=== PATIENT | female | born 1985 | race Hispanic/Latino ===

== ENCOUNTER 2018-10-19 09:52 | Inpatient (IN) | payer BC ==
[2018-10-19 10:07] VITALS: BMI 18.3
[2018-10-19] MEDS ORDERED: Sodium Chloride 0.9% 1,000 ML IV STA ×3 (10:08→11:59)
[2018-10-19 10:21] LABS: BASO # 0.1 K/uL (0.0-0.2); BASO % 0.5 % (0.0-2.0); HEMOGLOBIN 10.5 g/dL (12.0-16.0); LYMPH # 0.7 K/uL (1.0-4.3); LYMPH % 5.7 % (20.0-40.0); MEAN CELL VOLUME 90.7 fl (81.0-99.0); MEAN CORPUSCULAR HEMOGLOBIN 30.1 pg (27.0-31.0); MEAN CORPUSCULAR HGB CONC 33.2 g/dL (33.0-37.0); MEAN PLATELET VOLUME 7.4 fl (7.2-11.7); MONO # 0.4 K/uL (0.0-0.8); MONO % 3.4 % (0.0-10.0); NEUT % 90.4 % (50.0-75.0); NRBC % 0.1 % (0.0-0.0); PLATELET COUNT 301 K/uL (130-400); WHITE BLOOD COUNT 12.2 K/uL (4.8-10.8)
[2018-10-19 10:24] LABS: INR 1.1; PROTHROMBIN TIME 12.9 Seconds (9.8-13.1)
[2018-10-19 10:27] LABS: PARTIAL THROMBOPLASTIN TIME 26.5 Seconds (25.6-37.1)
[2018-10-19 10:30] LABS: ALB/GLOB RATIO 1.2 (1.0-2.1); ALBUMIN 3.9 g/dL (3.5-5.0); ALT/SGPT 23 U/L (9-52); AST/SGOT 20 U/L (14-36); BLOOD UREA NITROGEN 14 mg/dl (7-17); CALCIUM 9.2 mg/dL (8.4-10.2); GFR NON-AFRICAN AMERICAN > 60
--- NOTE | 2018-10-19 11:00 | ED PDOC ---
HPI: Abdomen Time Seen by Provider: 10/19/18 09:58 Chief Complaint (Nursing): Abdominal Pain Chief Complaint (Provider): Abdominal Pain History Per: Patient, Family () History/Exam Limitations: no limitations Onset/Duration Of Symptoms: Hrs Outside of [place] travel?: No Current Symptoms Are (Timing): Still Present Context: Other (Ectopic ) Severity: Severe Location Of Pain/Discomfort: RLQ, LLQ Associated Symptoms: denies: Nausea, Vomiting, Chest Pain Additional Complaint(s): 32 y/o female with no significant PMHx presents to the ED for evaluation of severe lower abdominal pain, onset last night. As per patient, she had an ecto pic on 09/30 and was given methotrexate. Patient reports of going to her [facility] [facility] for a follow up appointment on 10/07 and was found to have lower HCG levels. Patient states heavy vaginal bleeding began yesterday. Patient additionally states abdominal pain is associated with bloating and dizziness that worsens with sitting up. Otherwise, patient denies nausea, vomiting, chest pain, shortness of breath, vaginal bleeding today and complications. As per , patient has also been exposed to recent sick contacts who were diagnosed with strep throat. Patient reports of having a sore throat and congestion yesterday. Patient additionally denies cough. [employer]: Mason Hawk Past Medical History Reviewed: Historical Data, Nursing Documentation, Vital Signs Vital Signs: Last Vital Signs Temp 98 F 10/19/18 10:06 Pulse 95 H 10/19/18 10:28 Resp 19 10/19/18 10:28 BP 99/52 L 10/19/18 10:28 Pulse Ox 100 10/19/18 10:28 - Medical History PMH: No Chronic Diseases - Surgical History Surgical History: No Surg Hx - Family History Family History: States: Unknown Family Hx - Immunization History Hx Tetanus Toxoid Vaccination: No Hx Influenza Vaccination: No Hx Pneumococcal Vaccination: No - Home Medications Home Medications: Ambulatory Orders Medication Instructions Recorded RX: Ibuprofen [Motrin Tab] 600 mg PO Q6 PRN 5 Days #20 tab 10/21/18 RX: oxyCODONE/Acetaminophen 1 tab PO Q4 PRN 1 Days #15 tab 10/21/18 [Percocet 5/325 mg Tab] - Allergies Allergies/Adverse Reactions: Allergies Allergy/AdvReac Type Severity Reaction Status Date / Time Penicillins Allergy Mild RASH Verified 10/19/18 11:50 Review of Systems ROS Statement: Except As Marked, All Systems Reviewed And Found Negative ENT: Positive for: Nose Congestion, Throat Pain Cardiovascular: Negative for: Chest Pain Respiratory: Negative for: Cough, Shortness of Breath Gastrointestinal: Positive for: Abdominal Pain. Negative for: Nausea, Vomiting Genitourinary Female: Positive for: Vaginal Bleeding (LAST NIGHT) Neurological: Positive for: Dizziness (worsens with sitting up) Physical Exam - Reviewed Nursing Documentation Reviewed: Yes Vital Signs Reviewed: Yes - Physical Exam Appears: Positive for: Uncomfortable Head Exam: Positive for: ATRAUMATIC, NORMOCEPHALIC Skin: Positive for: Warm, Dry, Pallor Eye Exam: Positive for: Normal appearance Neck: Positive for: Normal, Painless ROM Cardiovascular/Chest: Positive for: Regular Rate, Rhythm. Negative for: Murmur Respiratory: Positive for: Normal Breath Sounds. Negative for: Respiratory Distress Gastrointestinal/Abdominal: Positive for: Tenderness (tenderness across the lower pelvis), Guarding (mild) Extremity: Positive for: Normal ROM. Negative for: Deformity Neurologic/Psych: Positive for: Alert, Oriented (x3). Negative for: Motor/Sensory Deficits - Laboratory Results Result Diagrams: 10/21/18 05:40 10/20/18 05:30 Interpretation Of Abn Labs: 12.2 wbc, 685.6 bhcg - ECG O2 Sat by Pulse Oximetry: 100 (RA) Pulse Ox Interpretation: Normal - Critical Care Total Time (In Min): 120 Documented Critical Care: Time excludes all time spent performint seperately billable procedures Medical Decision Making Medical Decision Making: Time: 1007 Plan: -- ABO/RH Type -- Type and Screen -- Beta-HCG, Quantitative -- CMP -- CBC with Differentials -- PTT -- Prothrombin Time -- Sodium Chloride IV 2000 mls/hr -- Sodium Chloride IV 1000 mls/hr -- Influenza A B -- Rapid Strep Group A Antigen -- OB Transvaginal US Scribe Attestation: Documented by Stan Bravo, acting as a scribe for Robert Bellamy MD. Provider Scribe Attestation: All medical record entries made by the Scribe were at my direction and personally dictated by me. I have reviewed the chart and agree that the record accurately reflects my personal performance of the history, physical exam, medical decision making, and the department course for this patient. I have also personally directed, reviewed, and agree with the discharge instructions and disposition. 1015: Spoke with Dr. Wilde who is covering Dr. Mcdonald. 1127: Stable. AAOx3. Spoke with Dr. Yi. Will see pt. in the ER. 2mg morphine given for pain control. 1140: Dr. Yi at bedside and will take pt. to the OR. 1154: Stable. BP maintained after fluid bolus. Crossmatch ordered. Will hold off on transfusion at this time at hg 10.[address] Rodriguez made aware pt. to come to ICU after surgery. Time: 1425 US RESULTS FINDINGS: The uterus measures 7.4 x 3.4 x 3.3 centimeters. The endometrium measures 3 millimeters. The right ovary measures 2.7 x 2.8 x 1.6 centimeters. The endometrium is 3 millimeters. Left are measures 3.3 x 3.9 centimeters with a 2 centimeter cyst. There is paraovarian cystic lesion how with peripheral enhancement and internal cysts pole suggested with crown-rump length measuring 1.4 cm corresponding to 7 weeks 5 days gestational age. IMPRESSION: Left ectopic measuring roughly 7 weeks and 5 days. No free fluid the pelvis. Disposition - Clinical Impression Clinical Impression: Ruptured ectopic - Patient ED Disposition Is Patient to be Admitted: Yes Counseled Patient/Family Regarding: Studies Performed, Diagnosis - Disposition Disposition Time: 11:00 Condition: CRITICAL - Pt Status Changed To: Hospital Disposition Of: Inpatient - Admit Certification Admit to Inpatient:: After my assessment, the patient will require hospitalization for at least two midnights. This is because of the severity of symptoms shown, intensity of services needed, and/or the medical risk in this patient being treated as an outpatient. - POA Present On Arrival: None
[2018-10-19] MEDS ORDERED: Sodium Chloride 0.9% 500 ML IV STA (11:27)
[2018-10-19 11:49] LABS: LYMPHOCYTE 5 % (20-50); MONOCYTE 4 % (0-10); NEUTROPHIL 91 % (42-75); PLATELET ESTIMATE NORMAL (NORMAL); TOTAL CELLS COUNTED 100
[2018-10-19 11:50] LABS: ANISOCYTOSIS SLIGHT; HYPOCHROMIC SLIGHT; LARGE PLATELETS PRESENT; OVALOCYTES SLIGHT
[2018-10-19] MEDS ORDERED: Gentamicin 80 mg/2mL Inj. ONE (11:52)
[2018-10-19] MEDS ORDERED: Etomidate 20 mg/10ml Inj IV ONE (12:01)
[2018-10-19] MEDS ORDERED: Succinylcholine 200 mg/10 ml Inj IV ONE (12:02)
[2018-10-19] MEDS ORDERED: Phenylephrine 10 mg/ml Inj ONE (12:05)
[2018-10-19] MEDS ORDERED: Rocuronium 10 mg/ml (5 ml) ONE (12:27)
[2018-10-19] MEDS ORDERED: Sodium Chloride 0.9% 1,000 ML IV ONE (12:40)
[2018-10-19] MEDS ORDERED: Lactated Ringer's 1,000 ML IV ONE (12:40)
[2018-10-19] MEDS ORDERED: Midazolam 2 MG/2 ML VIAL ONE (12:41)
[2018-10-19] MEDS ORDERED: Absorbable Gelatin Sponge Size 12-7 ONE (13:30)
[2018-10-19] MEDS ORDERED: Neostigmine 1:1000 (1 mg/ml) Inj ONE (13:31)
[2018-10-19] MEDS ORDERED: HYDROmorphone 0.5 mg/0.5 ml ISec IVP PRN (14:23)
--- NOTE | 2018-10-19 14:35 | CP.PCM.HP ---
History of Present Illness - History of Present Illness History of Present Illness: 32 YO f with no PMH presented to ER due to pelvic pain, radiate to shoulder, that started at night. Pt state she had an ectopic on 09/30 and treated with Methotrexate. Pt was seen by her OBGYN on 10/07 and her B-HCG were trending down. Since then patient had no symptoms. But last night she start having this severe pelvic pain 8 out of 10, radiate to shoulder, worsen by sitting, with heavy vaginal bleeding. She also was feeling dizzy and with Nausea. PT denies any other symptoms Allergy: Penicillin PMH: none PSH: none OBGYN: Ectopic pregnany PFH None Social: no smoke, drug but does drink alcohol occasionally ROS all negative except what mentioned In ED Pt was hypotensive and with tachycardia, patient seemed very uncomfortable and pale CBC H/H 10.5/31.5 CMP B-HCG 685 ( Pt state it was in thousand last time checked) ABO/RH Type Type and Screen Pt received Sodium Chloride IV 2000 mls/hr Sodium Chloride IV 1000 mls/hr Influenza A B Rapid Strep Group A Antigen EKG NSR No st/t changes OB Transvaginal US Postive for blood in abdomen ( prelim reading) PT was admitted under OBGYN for Emergent C-Sec for ectopic . Present on Admission - Present on Admission Any Indicators Present on Admission: No Review of Systems - Review of Systems All systems: reviewed and no additional remarkable complaints except Past Patient History - Past Medical History & Family History Past Medical History?: No - Past Social History Smoking Status: Never Smoked - CARDIAC Hx Cardiac Disorders: No - PULMONARY Hx Respiratory Disorders: No - PSYCHIATRIC Hx Emotional Abuse: No Hx Physical Abuse: No Hx Substance Use: No - SURGICAL HISTORY Other/Comment: ectopic - ANESTHESIA Hx Anesthesia: Yes Hx Anesthesia Reactions: No Hx Malignant Hyperthermia: No Meds Allergies/Adverse Reactions: Allergies Allergy/AdvReac Type Severity Reaction Status Date / Time Penicillins Allergy Mild RASH Verified 10/19/18 11:50 Physical Exam - Constitutional Appears: In Acute Distress - Head Exam Head Exam: ATRAUMATIC, NORMAL INSPECTION, NORMOCEPHALIC - Eye Exam Eye Exam: EOMI, Normal appearance, PERRL Pupil Exam: NORMAL ACCOMODATION, PERRL - ENT Exam ENT Exam: Mucous Membranes Moist, Normal Exam - Neck Exam Neck exam: Negative for: Tenderness - Respiratory Exam Respiratory Exam: Clear to Auscultation Bilateral, NORMAL BREATHING PATTERN - Cardiovascular Exam Cardiovascular Exam: REGULAR RHYTHM, +S1, +S2 - GI/Abdominal Exam GI & Abdominal Exam: Tenderness. absent: Distended - Extremities Exam Extremities exam: Positive for: normal inspection - Neurological Exam Neurological exam: Alert, Oriented x3 - Psychiatric Exam Psychiatric exam: Normal Affect, Normal Mood - Skin Skin Exam: Dry, Pallor Results - Vital Signs Recent Vital Signs: Last Vital Signs Temp 98 F 10/19/18 12:53 Pulse 80 10/19/18 12:53 Resp 20 10/19/18 12:53 BP 102/56 L 10/19/18 12:53 Pulse Ox 98 10/19/18 12:53 - Labs Result Diagrams: 10/19/18 10:10 10/19/18 10:10 Labs: Laboratory Results - last 24 hr 10/19/18 10/19/18 10/19/18 10:10 10:10 10:10 WBC 12.2 H RBC 3.50 L Hgb 10.5 L Hct 31.7 L MCV 90.7 MCH 30.1 MCHC 33.2 RDW 13.0 Plt Count 301 MPV 7.4 Neut % (Auto) 90.4 H Lymph % (Auto) 5.7 L Real % (Auto) 3.4 Eos % (Auto) 0.0 Baso % (Auto) 0.5 Neut # (Auto) 11.0 H Lymph # (Auto) 0.7 L Real # (Auto) 0.4 Eos # (Auto) 0.0 Baso # (Auto) 0.1 Neutrophils % (Manual) 91 H Lymphocytes % (Manual) 5 L Monocytes % (Manual) 4 Platelet Estimate Normal Large Platelets Present Hypochromasia (manual) Slight Anisocytosis (manual) Slight Macrocytosis (manual) Slight Ovalocytes Slight PT INR APTT Sodium 139 Potassium 4.3 Chloride 104 Carbon Dioxide 22 Anion Gap 17 BUN 14 Creatinine 0.7 Est GFR ( Amer) > 60 Est GFR (Non-Af Amer) > 60 Random Glucose 180 H Calcium 9.2 Total Bilirubin 0.1 L AST 20 ALT 23 Alkaline Phosphatase 46 Total Protein 7.1 Albumin 3.9 Globulin 3.2 Albumin/Globulin Ratio 1.2 Beta HCG, Quant 685.68 Grp A Beta Strep Ag Blood Type A POSITIVE Blood Type Confirm Antibody Screen Negative Crossmatch See Detail BBK History Checked No verified bt 10/19/18 10/19/18 10/19/18 10:10 10:40 12:11 WBC RBC Hgb Hct MCV MCH MCHC RDW Plt Count MPV Neut % (Auto) Lymph % (Auto) Real % (Auto) Eos % (Auto) Baso % (Auto) Neut # (Auto) Lymph # (Auto) Real # (Auto) Eos # (Auto) Baso # (Auto) Neutrophils % (Manual) Lymphocytes % (Manual) Monocytes % (Manual) Platelet Estimate Large Platelets Hypochromasia (manual) Anisocytosis (manual) Macrocytosis (manual) Ovalocytes PT 12.9 INR 1.1 APTT 26.5 Sodium Potassium Chloride Carbon Dioxide Anion Gap BUN Creatinine Est GFR ( Amer) Est GFR (Non-Af Amer) Random Glucose Calcium Total Bilirubin AST ALT Alkaline Phosphatase Total Protein Albumin Globulin Albumin/Globulin Ratio Beta HCG, Quant Grp A Beta Strep Ag Negative Blood Type Blood Type Confirm A POSITIVE Antibody Screen Crossmatch BBK History Checked Assessment & Plan - Assessment and Plan (Free Text) Assessment: 32 YO f with no PMH presented to ER due to pelvic pain, radiate to shoulder, that started last night.S/P Methotrexate Tx for ectopic . Admitted to OBGYN for emergent C-Sec. Plan Start Clindamycin 900mg for preob Start Gentamicin 80mg for preob IV fluid To regulate blood pressure 2 Unit blood ordered, But not given Pt will be sent to OR Patient will be sent to ICU for monitoring after surgery F/U CBC at 17:00 10/19/18 F/U US official reading Monitor Vitals
--- NOTE | 2018-10-19 14:50 | US ---
Date of service: 10/19/2018 PROCEDURE: HISTORY: preg and pain; known ectopic COMPARISON: TECHNIQUE: FINDINGS: The uterus measures 7.4 x 3.4 x 3.3 centimeters. The endometrium measures 3 millimeters. The right ovary measures 2.7 x 2.8 x 1.6 centimeters. The endometrium is 3 millimeters. Left are measures 3.3 x 3.9 centimeters with a 2 centimeter cyst. There is paraovarian cystic lesion how with peripheral enhancement and internal cysts pole suggested with crown-rump length measuring 1.4 cm corresponding to 7 weeks 5 days gestational age. IMPRESSION: Left ectopic measuring roughly 7 weeks and 5 days. No free fluid the pelvis.
[2018-10-19] MEDS ORDERED: Sodium Chloride 0.9% 1,000 ML IV SCH (15:30)
--- NOTE | 2018-10-19 15:37 | CP.PCM.CON ---
History of Present Illness - History of Present Illness History of Present Illness: 32 years old female with no significant past medical history s/p surgery for ectopic , patient awake, alert, no fever, no vomiting, no distress, events reviewed Review of Systems - Review of Systems All systems: reviewed and no additional remarkable complaints except (mild abdominal pain) Past Patient History - Past Medical History & Family History Past Medical History?: No - Past Social History Smoking Status: Never Smoked - CARDIAC Hx Cardiac Disorders: No - PULMONARY Hx Respiratory Disorders: No - HEMATOLOGICAL/ONCOLOGICAL Hx AIDS: No Hx Human Immunodeficiency Virus (HIV): No - MUSCULOSKELETAL/RHEUMATOLOGICAL Hx Falls: No - PSYCHIATRIC Hx Emotional Abuse: No Hx Physical Abuse: No Hx Substance Use: No - SURGICAL HISTORY Other/Comment: ectopic - ANESTHESIA Hx Anesthesia: Yes Hx Anesthesia Reactions: No Hx Malignant Hyperthermia: No Meds Allergies/Adverse Reactions: Allergies Allergy/AdvReac Type Severity Reaction Status Date / Time Penicillins Allergy Mild RASH Verified 10/19/18 11:50 - Medications Medications: Current Medications Hydromorphone HCl (Dilaudid) 0.5 mg IVP Q5M PRN PRN Reason: Pain, moderate (4-7) Sodium Chloride (Sodium Chloride 0.9%) 1,000 mls @ 50 mls/hr IV .Q20H DANELLE Stop: 10/20/18 15:21 Meperidine HCl (Demerol) 25 mg IVP ONCE PRN PRN Reason: Shivering/Rigor Stop: 10/19/18 16:24 Metoclopramide HCl (Reglan) 10 mg IVP ONCE PRN PRN Reason: Nausea/Vomiting Stop: 10/19/18 16:24 Ondansetron HCl (Zofran Inj) 4 mg IVP ONCE PRN PRN Reason: Nausea/Vomiting Stop: 10/19/18 16:24 Physical Exam - Constitutional Appears: Well - Head Exam Head Exam: ATRAUMATIC, NORMAL INSPECTION - Eye Exam Eye Exam: Normal appearance Pupil Exam: PERRL - ENT Exam ENT Exam: Mucous Membranes Moist - Neck Exam Neck exam: Positive for: Normal Inspection - Respiratory Exam Respiratory Exam: Clear to Auscultation Bilateral - Cardiovascular Exam Cardiovascular Exam: REGULAR RHYTHM - GI/Abdominal Exam GI & Abdominal Exam: Soft - Extremities Exam Extremities exam: Positive for: normal inspection - Back Exam Back exam: NORMAL INSPECTION - Neurological Exam Neurological exam: Alert, Oriented x3 - Skin Skin Exam: Warm Results - Vital Signs Recent Vital Signs: Last Vital Signs Temp 97.5 F L 10/19/18 14:23 Pulse 88 10/19/18 15:08 Resp 16 10/19/18 15:08 BP 110/61 10/19/18 15:08 Pulse Ox 100 10/19/18 15:08 - Labs Result Diagrams: 10/19/18 10:10 10/19/18 10:10 Labs: Laboratory Results - last 24 hr 10/19/18 10/19/18 10/19/18 10:10 10:10 10:10 WBC 12.2 H RBC 3.50 L Hgb 10.5 L Hct 31.7 L MCV 90.7 MCH 30.1 MCHC 33.2 RDW 13.0 Plt Count 301 MPV 7.4 Neut % (Auto) 90.4 H Lymph % (Auto) 5.7 L [place] % (Auto) 3.4 Eos % (Auto) 0.0 Baso % (Auto) 0.5 Neut # (Auto) 11.0 H Lymph # (Auto) 0.7 L [place] # (Auto) 0.4 Eos # (Auto) 0.0 Baso # (Auto) 0.1 Neutrophils % (Manual) 91 H Lymphocytes % (Manual) 5 L Monocytes % (Manual) 4 Platelet Estimate Normal Large Platelets Present Hypochromasia (manual) Slight Anisocytosis (manual) Slight Macrocytosis (manual) Slight Ovalocytes Slight PT INR APTT Sodium 139 Potassium 4.3 Chloride 104 Carbon Dioxide 22 Anion Gap 17 BUN 14 Creatinine 0.7 Est GFR ( Amer) > 60 Est GFR (Non-Af Amer) > 60 Random Glucose 180 H Calcium 9.2 Total Bilirubin 0.1 L AST 20 ALT 23 Alkaline Phosphatase 46 Total Protein 7.1 Albumin 3.9 Globulin 3.2 Albumin/Globulin Ratio 1.2 Beta HCG, Quant 685.68 Grp A Beta Strep Ag Blood Type A POSITIVE Blood Type Confirm Antibody Screen Negative Crossmatch See Detail BBK History Checked No verified bt 10/19/18 10/19/18 10/19/18 10:10 10:40 12:11 WBC RBC Hgb Hct MCV MCH MCHC RDW Plt Count MPV Neut % (Auto) Lymph % (Auto) [place] % (Auto) Eos % (Auto) Baso % (Auto) Neut # (Auto) Lymph # (Auto) [place] # (Auto) Eos # (Auto) Baso # (Auto) Neutrophils % (Manual) Lymphocytes % (Manual) Monocytes % (Manual) Platelet Estimate Large Platelets Hypochromasia (manual) Anisocytosis (manual) Macrocytosis (manual) Ovalocytes PT 12.9 INR 1.1 APTT 26.5 Sodium Potassium Chloride Carbon Dioxide Anion Gap BUN Creatinine Est GFR ( Amer) Est GFR (Non-Af Amer) Random Glucose Calcium Total Bilirubin AST ALT Alkaline Phosphatase Total Protein Albumin Globulin Albumin/Globulin Ratio Beta HCG, Quant Grp A Beta Strep Ag Negative Blood Type Blood Type Confirm A POSITIVE Antibody Screen Crossmatch BBK History Checked Assessment & Plan - Assessment and Plan (Free Text) Assessment: A/P Ectopic s/p surgery, anemia - Follow CBC - Pain control - OBGYN follow up
[2018-10-19 18:41] LABS: MEAN CELL VOLUME 92.9 fl (81.0-99.0); MEAN CORPUSCULAR HEMOGLOBIN 31.2 pg (27.0-31.0); MEAN CORPUSCULAR HGB CONC 33.5 g/dL (33.0-37.0); RBC 2.39 Mil/uL (3.80-5.20); RED CELL DISTRIBUTION WIDTH 12.7 % (11.5-14.5); WHITE BLOOD COUNT 8.4 K/uL (4.8-10.8)
[2018-10-19 19:00] LABS: HEMOGLOBIN 7.4 g/dL (12.0-16.0)
[2018-10-19] MEDS ORDERED: Simethicone 80 mg Chewtab PO STA (20:16)
[2018-10-19] MEDS ORDERED: Gentamicin 80mg/50ml NS 80 MG/50 ML BAG IVPB SCH (21:00)
[2018-10-19] MEDS ORDERED: Oxycodone/Acetaminophen 5/325 mg Tab PO SCH (22:00)
[2018-10-20 06:13] LABS: BASO % 0.3 % (0.0-2.0); EOS % 0.5 % (0.0-4.0); HEMOGLOBIN 8.9 g/dL (12.0-16.0); LYMPH # 1.1 K/uL (1.0-4.3); LYMPH % 18.5 % (20.0-40.0); MEAN CELL VOLUME 91.6 fl (81.0-99.0); MEAN CORPUSCULAR HEMOGLOBIN 31.5 pg (27.0-31.0); MEAN CORPUSCULAR HGB CONC 34.4 g/dL (33.0-37.0); MEAN PLATELET VOLUME 7.1 fl (7.2-11.7); MONO # 0.6 K/uL (0.0-0.8); MONO % 9.7 % (0.0-10.0); NEUT # 4.1 K/uL (1.8-7.0); RBC 2.83 Mil/uL (3.80-5.20); RED CELL DISTRIBUTION WIDTH 13.5 % (11.5-14.5); WHITE BLOOD COUNT 5.8 K/uL (4.8-10.8)
[2018-10-20 06:54] LABS: BLOOD UREA NITROGEN 7 mg/dl (7-17); CALCIUM 7.8 mg/dL (8.4-10.2); GFR NON-AFRICAN AMERICAN > 60
[2018-10-20] MEDS ORDERED: Potassium Chloride 20 mEq ER Tab PO ONE (07:36)
[2018-10-20] MEDS: Oxycodone/Acetaminophen 5/325 mg Tab PO PRN ×2 (10:24→20:08)
--- NOTE | 2018-10-20 10:46 | PCM.SURG1 ---
Surgeon's Initial Post Op Note - Surgeon's Notes Surgeon: Kassiyd [employer] Manager: Robbie Type of Anesthesia: General Endo Anesthesia Administered By: Brett Pre-Operative Diagnosis: Ectopic Operative Findings: Ectopic implanted in peritoneum on abdominal wall, normal uterus, normal tubes and ovaries bilaterally. Hemoperitoneum ~1000cc. Post-Operative Diagnosis: Abdominal wall ectopic , hemoperitoneum Operation Performed: Laparotomy, removal of hemoperitoneum, removal of abdominal wall ectopic Specimen/Specimens Removed: Ectopic Estimated Blood Loss: EBL {In ML}: 1,000 Blood Products Given: N/A Drains Used: No Drains Post-Op Condition: Good Date of Surgery/Procedure: 10/19/18 Time of Surgery/Procedure: 15:30
--- NOTE | 2018-10-20 10:49 | CP.PCM.PN ---
Subjective - Date & Time of Evaluation Date of Evaluation: 10/20/18 Time of Evaluation: 10:47 - Subjective Subjective: Patient without complaints at this time. Patient status post 2 units packed red blood cell transfusion. Patient reports pain controlled. Patient tolerating small amounts of solid food. Patient denies any nausea vomiting, fever or chills , chest pain or shortness of breath. Objective - Vital Signs/Intake and Output Vital Signs (last 24 hours): Temp Pulse Resp BP Pulse Ox 98.9 F 81 18 110/57 L 100 10/20/18 08:00 10/20/18 08:00 10/20/18 08:00 10/20/18 08:00 10/20/18 08:00 Intake and Output: 10/20/18 10/20/18 06:59 18:59 Intake Total 1800 50 Output Total 60 Balance 1800 -10 - Medications Medications: Current Medications Acetaminophen (Tylenol 325mg Tab) 650 mg PO Q6 PRN PRN Reason: Fever >100.4 F Sodium Chloride (Sodium Chloride 0.9%) 1,000 mls @ 50 mls/hr IV .Q20H DANELLE Stop: 10/20/18 15:21 Last Admin: 10/19/18 16:15 Dose: 50 mls/hr Gentamicin Sulfate 80 mg/ (Sodium Chloride) 102 mls @ 102 mls/hr IVPB Q12 DANELLE; Protocol Last Admin: 10/20/18 08:58 Dose: 102 mls/hr Ibuprofen (Motrin Tab) 600 mg PO Q6 PRN PRN Reason: Pain, Mild (1-3) Oxycodone/Acetaminophen (Percocet 5/325 Mg Tab) 1 tab PO Q4 PRN PRN Reason: Pain, moderate (4-7) Stop: 10/23/18 09:19 Last Admin: 10/20/18 10:24 Dose: 1 tab - Labs Labs: 10/20/18 05:30 10/20/18 05:30 PT 12.9 Seconds (9.8-13.1) 10/19/18 10:10 INR 1.1 10/19/18 10:10 APTT 26.5 Seconds (25.6-37.1) 10/19/18 10:10 - Constitutional Appears: Well, No Acute Distress - Head Exam Head Exam: NORMAL INSPECTION - Eye Exam Eye Exam: Normal appearance Pupil Exam: NORMAL ACCOMODATION - ENT Exam ENT Exam: Mucous Membranes Moist - Respiratory Exam Respiratory Exam: NORMAL BREATHING PATTERN - Cardiovascular Exam Cardiovascular Exam: REGULAR RHYTHM - GI/Abdominal Exam Additional comments: Soft, nondistended, appropriate diffuse tenderness. Incision bandage clean, dry, intact - Extremities Exam Extremities Exam: absent: Calf Tenderness Assessment and Plan - Assessment and Plan (Free Text) Assessment: Postoperative day #1 status post laparotomy, removal of abdominal wall ectopic. Patient recovering well. Plan: Pain control Advance diet as tolerated [place], plan to check Plan to recheck CBC Patient out of bed and ambulating Plan to transfer patient from ICU to Med[facility] floor I discussed plan with patient all patient questions answered.
[2018-10-20] MEDS ORDERED: Oxycodone/Acetaminophen 5/325 mg Tab PO PRN (11:27)
[2018-10-20 16:21] VITALS: RESP 20
--- NOTE | 2018-10-20 22:09 | CARD ---
APPROVED REPORT Date of service: 10/19/2018 EKG Measurement Heart [id number] <Conclusion> Normal sinus rhythm Normal ECG
--- NOTE | 2018-10-20 22:41 | OP ---
PROCEDURE DATE: 10/19/2018 PREOPERATIVE DIAGNOSES: Ectopic , hemoperitoneum. POSTOPERATIVE DIAGNOSES: Abdominal wall ectopic , hemoperitoneum. OPERATION PERFORMED: Laparotomy, removal of hemoperitoneum, removal of abdominal wall ectopic . ESTIMATED BLOOD LOSS: 1000 mL. FLUIDS: 2000 mL lactated Ringer's. URINE OUTPUT: 400 mL of clear urine. COMPLICATIONS: None. SURGEON: Frandy Yi MD EQUITIES TRADER: Damari Avalos MD. Dr. Avalos was present from the beginning of the procedure to the end of the procedure. Dr. Avalos was integral in exposing the surgical field, controlling intraoperative bleeding, and manual and surgical removal of ectopic . ANESTHESIA: General. ANESTHESIOLOGIST: Marino West MD DESCRIPTION OF PROCEDURE: The patient was taken to the operating room where general anesthesia was found to be adequate. The patient was prepped and draped in a normal sterile fashion in the dorsal supine position. A Pfannenstiel skin incision was made with a scalpel. This was carried down to the underlying layer of fascia with the scalpel. A midline defect was made in the fascial layer with a scalpel. The fascial incision was then extended bilaterally sharply with curved Marino scissors. The fascial layer was from the underlying rectus muscles both bluntly and sharply with curved Marino scissors. The rectus muscles were at the midline. The peritoneum was then identified, tented up with Gladys clamps x2, entered sharply with Metzenbaum scissors. This peritoneal incision was then extended superiorly and inferiorly with good visualization of the urinary bladder. At this point in the surgery, hemoperitoneum was encountered. Approximately 1000 mL of blood and clots was removed from the abdominal cavity. The abdomen and pelvis were explored. The uterus was found to be normal. The fallopian tubes were found to be normal bilaterally. The ovaries were found to be normal bilaterally. An approximately 3-cm intact gestational sac was found at the posterior cul-de-sac adjacent to the uterosacral ligament. This gestational sac was embedded into the abdominal wall. The gestational sac was removed from the abdominal wall both bluntly and sharply with Metzenbaum scissors. After removal of all products of conception, the area was electrocauterized for hemostasis. After electrocautery, area found to be hemostatic. The abdomen and pelvic were irrigated with copious amounts of warm normal saline. Re-inspection of the surgical site roved hemostasis. All instruments were removed from the patient. The peritoneal layer was closed with a running stitch of 2-0 chromic. The rectus muscles were reapproximated at the midline with a running stitch of 2-0 chromic. The fascial layer was closed with a running stitch of 0 Vicryl. Subcutaneous tissue was closed with a running stitch of 3-0 plain. The skin was closed with subcutaneous stitch of 3-0 Vicryl. The patient tolerated the procedure well. All sponge count, lap count, and needle counts were correct x2. The patient was given a dose of gentamicin and clindamycin just prior to the beginning of the procedure. There were no complications other than the hemoperitoneum that was already present. The patient tolerated the procedure well. The patient was taken to the recovery room in awake and stable condition. Frandy Yi MD
[2018-10-21] MEDS: Oxycodone/Acetaminophen 5/325 mg Tab PO PRN ×2 (02:59→12:57)
[2018-10-21 06:33] LABS: HEMOGLOBIN 8.3 g/dL (12.0-16.0); MEAN CORPUSCULAR HEMOGLOBIN 31.7 pg (27.0-31.0); MEAN CORPUSCULAR HGB CONC 34.9 g/dL (33.0-37.0); RBC 2.62 Mil/uL (3.80-5.20); RED CELL DISTRIBUTION WIDTH 13.1 % (11.5-14.5); WHITE BLOOD COUNT 5.2 K/uL (4.8-10.8)
[2018-10-21 08:22] VITALS: BP 115/67; PULSE 85; TEMP 99.1; O2SAT 100
--- NOTE | 2018-10-21 13:27 | CP.PCM.PN ---
Objective - Vital Signs/Intake and Output Vital Signs (last 24 hours): Temp Pulse Resp BP Pulse Ox 99.1 F 85 20 115/67 100 10/21/18 08:21 10/21/18 08:21 10/21/18 08:21 10/21/18 08:21 10/21/18 08:21 - Medications Medications: Current Medications Acetaminophen (Tylenol 325mg Tab) 650 mg PO Q6 PRN PRN Reason: Fever >100.4 F Docusate Sodium (Colace) 100 mg PO BID DANELLE Last Admin: 10/21/18 08:44 Dose: 100 mg Gentamicin Sulfate 80 mg/ (Sodium Chloride) 102 mls @ 102 mls/hr IVPB Q12 DANELLE; Protocol Last Admin: 10/21/18 08:44 Dose: 102 mls/hr Ibuprofen (Motrin Tab) 600 mg PO Q6 PRN PRN Reason: Pain, Mild (1-3) Last Admin: 10/21/18 08:43 Dose: 600 mg Ondansetron HCl (Zofran Inj) 4 mg IVP Q6 PRN PRN Reason: Nausea/Vomiting Last Admin: 10/20/18 18:30 Dose: 4 mg Oxycodone/Acetaminophen (Percocet 5/325 Mg Tab) 1 tab PO Q4 PRN PRN Reason: Pain, moderate (4-7) Stop: 10/23/18 09:19 Last Admin: 10/21/18 12:57 Dose: 1 tab Oxycodone/Acetaminophen (Percocet 5/325 Mg Tab) 2 tab PO Q6 PRN PRN Reason: Pain, severe (8-10) Stop: 10/23/18 11:28 - Labs Labs: 10/21/18 05:40 10/20/18 05:30 PT 12.9 Seconds (9.8-13.1) 10/19/18 10:10 INR 1.1 10/19/18 10:10 APTT 26.5 Seconds (25.6-37.1) 10/19/18 10:10
--- NOTE | 2018-10-21 13:49 | CP.PCM.PN ---
Subjective - Date & Time of Evaluation Date of Evaluation: 10/21/18 Time of Evaluation: 13:43 - Subjective Subjective: Pt is a 32 yo s/p laparotomy for abdominal ectopic - pt healing well, denies CP, no N/v, tolerating Po diet, ambulating/voiding well, no vaginal bleeding, no fever, abdominal pain tolerable with meds. Objective - Vital Signs/Intake and Output Vital Signs (last 24 hours): Temp Pulse Resp BP Pulse Ox 99.1 F 85 20 115/67 100 10/21/18 08:21 10/21/18 08:21 10/21/18 08:21 10/21/18 08:21 10/21/18 08:21 - Medications Medications: Current Medications Acetaminophen (Tylenol 325mg Tab) 650 mg PO Q6 PRN PRN Reason: Fever >100.4 F Docusate Sodium (Colace) 100 mg PO BID DANELLE Last Admin: 10/21/18 08:44 Dose: 100 mg Gentamicin Sulfate 80 mg/ (Sodium Chloride) 102 mls @ 102 mls/hr IVPB Q12 DANELLE; Protocol Last Admin: 10/21/18 08:44 Dose: 102 mls/hr Ibuprofen (Motrin Tab) 600 mg PO Q6 PRN PRN Reason: Pain, Mild (1-3) Last Admin: 10/21/18 08:43 Dose: 600 mg Ondansetron HCl (Zofran Inj) 4 mg IVP Q6 PRN PRN Reason: Nausea/Vomiting Last Admin: 10/20/18 18:30 Dose: 4 mg Oxycodone/Acetaminophen (Percocet 5/325 Mg Tab) 1 tab PO Q4 PRN PRN Reason: Pain, moderate (4-7) Stop: 10/23/18 09:19 Last Admin: 10/21/18 12:57 Dose: 1 tab Oxycodone/Acetaminophen (Percocet 5/325 Mg Tab) 2 tab PO Q6 PRN PRN Reason: Pain, severe (8-10) Stop: 10/23/18 11:28 - Labs Labs: 10/21/18 05:40 10/20/18 05:30 PT 12.9 Seconds (9.8-13.1) 10/19/18 10:10 INR 1.1 10/19/18 10:10 APTT 26.5 Seconds (25.6-37.1) 10/19/18 10:10 - Head Exam Head Exam: NORMAL INSPECTION - Eye Exam Eye Exam: Normal appearance - Respiratory Exam Respiratory Exam: NORMAL BREATHING PATTERN - Cardiovascular Exam Cardiovascular Exam: REGULAR RHYTHM - GI/Abdominal Exam GI & Abdominal Exam: Normal Bowel Sounds - Extremities Exam Extremities Exam: Normal Inspection Assessment and Plan - Assessment and Plan (Free Text) Assessment: A/P 1. Patient s/p laparotomy POD #2 - pt recovering well, tolerating PO pain medication and ambulating/voiding well. Will discharge home 2. Discharge instructions reviewed and pt to follow up in 1 week
--- NOTE | 2018-10-30 16:12 | PQF ---
PROVIDER RESPONSE TEXT: Anemia due to Acute Blood loss from ectopic REVIEWER QUERY TEXT: Anemia Type Anemia is documented in the Medical Record in 10/[address] Arriaza. Please specify the cause (i ncludes suspected or probable cause) Such as: -- Due to acute blood loss -- Due to chronic blood loss -- Due to iron deficiency -- Due to postoperative blood loss -- Due to chronic disease -- Other, please specify The patient's Clinical Indicators include: xx Query created by: Lela Menendez on 10/22/2018 1:16 PM Electronically signed by: Frandy Yi MD 10/30/2018 4:09 PM
== END 2018-10-21 14:28 | disposition home or self-care (01) | DRG 818 ==
LOC: H.ER 09:52 → H.ERHOLD 11:36 → H.ICU/CCU 14:28 → H.MEDSURG1 10-20 11:00
PROVIDERS: ADMIT Obstetrics & Gynecology; ATTEND Obstetrics & Gynecology
PROC: 30233N1 Transfusion of Nonautologous Red Blood Cells into Peripheral Vein, Percutaneous Approach (ICD-10-PCS; 2018-10-19)
PROC: 10T20ZZ Resection of Products of Conception, Ectopic, Open Approach (ICD-10-PCS; principal; 2018-10-19 12:45)
DX: O00.00 Abdominal pregnancy without intrauterine pregnancy (principal); D62 Acute posthemorrhagic anemia; I95.9 Hypotension, unspecified; Z88.0 Allergy status to penicillin

== ENCOUNTER 2018-11-30 11:25 | Emergency (ER) | payer OTHER ==
[2018-11-30 11:27] VITALS: BMI 18.3
[2018-11-30 11:38] VITALS: BP 113/71; RESP 16; TEMP 98.5; O2SAT 100
--- NOTE | 2018-11-30 12:28 | ED PDOC ---
HPI: Female Pain Time Seen by Provider: 11/30/18 12:03 Chief Complaint (Nursing): Female Genitourinary History Per: Patient Additional Complaint(s): Pt. states she was advised by Dr. Yi to come to ED for BHCG, US, CBC, and progesterone levels. States she's had vaginal spotting for almost 2 weeks which has improved. Further states she was seen by Dr. Yi on Sunday and had blood work done which resulted today and indicated her BHCG level was 250. States on 09/2018 she was dx with an ectopic and given MTX and on 10/2018 she required a laparatomy by Dr. Yi for the ectopic . States her 2nd most recent BHCG level was 10 which was done in the middle of 10/2018. Currently without any pain. Denies weakness, SOB, fever, dysuria. LMP: 08/18/2018 Past Medical History Reviewed: Historical Data, Nursing Documentation, Vital Signs Vital Signs: Last Vital Signs Temp 98.5 F 11/30/18 11:37 Pulse 86 11/30/18 11:37 Resp 16 11/30/18 11:37 BP 113/71 11/30/18 11:37 Pulse Ox 100 11/30/18 11:37 - Medical History PMH: Denies: HIV - Surgical History Other surgeries: laparatomy - Family History Family History: States: No Known Family Hx - Immunization History Hx Tetanus Toxoid Vaccination: No Hx Influenza Vaccination: No Hx Pneumococcal Vaccination: No - Home Medications Home Medications: Ambulatory Orders Medication Instructions Recorded Ibuprofen [Motrin Tab] 600 mg PO Q6 PRN 5 Days #20 tab 10/21/18 oxyCODONE/Acetaminophen [Percocet 1 tab PO Q4 PRN 1 Days #15 tab 10/21/18 5/325 mg Tab] - Allergies Allergies/Adverse Reactions: Allergies Allergy/AdvReac Type Severity Reaction Status Date / Time Penicillins Allergy Mild RASH Verified 10/19/18 11:50 Review of Systems ROS Statement: Except As Marked, All Systems Reviewed And Found Negative Genitourinary Female: Positive for: Vaginal Bleeding Physical Exam - Physical Exam Appears: Positive for: Well, Non-toxic, No Acute Distress Skin: Positive for: Normal Color, Warm. Negative for: Rash Eye Exam: Positive for: Normal appearance Gastrointestinal/Abdominal: Positive for: Normal Exam, Soft. Negative for: Tenderness Back: Positive for: Normal Inspection. Negative for: L CVA Tenderness, R CVA Tenderness Neurologic/Psych: Positive for: Alert, Oriented (x3). Negative for: Aphasia, Fa cial Droop - Laboratory Results Result Diagrams: 11/30/18 12:30 11/30/18 12:30 - ECG O2 Sat by Pulse Oximetry: 100 - Progress ED Course And Treament: Labs, OB TVUS ordered. 1330 Case d/w Dr. Yi who reviewed labs and viewed US himself and states pt. can be dc'd. Pt. is to contact his office on Sunday to make an appointment for Sunday. Also requests no abx to be given and he will f/u urine C&S results. Pt. and informed of plan and care. Both agree with care and plan. Advised to f/u with Dr. Yi as discussed but is to return to ED immediately if symptom s worsen. Disposition - Clinical Impression Clinical Impression: Bleeding in early - Patient ED Disposition Is Patient to be Admitted: No - Disposition Referrals: Frandy Yi MD [Staff Provider] - Disposition: Routine/Home Disposition Time: 13:30 Condition: STABLE Additional Instructions: CONTACT DR. YI ON Sunday12/02/2018 TO MAKE APPOINTMENT FOR Sunday12/06/2018 WITHOUT FAIL RETURN TO ED IMMEDIATELY IF SYMPTOMS WORSEN GLORIA WITT, thank you for letting us take care of you today. Your provider was Jessica Price MD and you were treated for ABDNORMAL LABS. The emergency medical care you received today was directed at your acute symptoms. If you were prescribed any medication, please fill it and take as directed. It may take several days for your symptoms to resolve. Return to the Emergency Department if your symptoms worsen, do not improve, or if you have any other problems. Please contact your doctor or call one of the physicians/clinics you have been referred to that are listed on the Patient Visit Information form that is included in your discharge packet. Bring any paperwork you were given at dis charge with you along with any medications you are taking to your follow up visit. Our treatment cannot replace ongoing medical care by a primary care provider outside of the emergency department. Thank you for allowing the [facility] team to be part of your care today. If you had an X-Ray or CT scan: A Radiologist will review the ED reading if any change in treatment is needed we will contact you. If you had a blood, urine, or wound culture: It will take several days for the results, if any change in treatment is needed we will contact you. If you had an STI test: It will take 48 hours for the results. Please call after 1 week if you have not heard back. Instructions: Bleeding With (DC) Forms: [facility] (Spanish)
[2018-11-30 12:49] LABS: BASO # 0.1 K/uL (0.0-0.2); BASO % 1.3 % (0.0-2.0); EOS # 0.1 K/uL (0.0-0.7); EOS % 2.3 % (0.0-4.0); HEMOGLOBIN 11.4 g/dL (12.0-16.0); LYMPH # 1.6 K/uL (1.0-4.3); LYMPH % 36.9 % (20.0-40.0); MEAN CELL VOLUME 88.7 fl (81.0-99.0); MEAN CORPUSCULAR HEMOGLOBIN 30.1 pg (27.0-31.0); MONO # 0.4 K/uL (0.0-0.8); MONO % 8.3 % (0.0-10.0); NEUT # 2.2 K/uL (1.8-7.0); NEUT % 51.2 % (50.0-75.0); NRBC % 0.1 % (0.0-0.0); RBC 3.77 Mil/uL (3.80-5.20); RED CELL DISTRIBUTION WIDTH 13.2 % (11.5-14.5); WHITE BLOOD COUNT 4.4 K/uL (4.8-10.8)
[2018-11-30 12:54] LABS: SQUAMOUS EPITHIAL 9 /hpf (0-5); URINE BACTERIA MANY (<OCC); URINE BILIRUBIN NEGATIVE (NEGATIVE); URINE BLOOD NEGATIVE (NEGATIVE); URINE CLARITY CLOUDY (Clear); URINE COLOR YELLOW (YELLOW); URINE GLUCOSE (UA) NEG (NEGATIVE); URINE LEUKOCYTE ESTERASE NEG Leu/uL (Negative); URINE PROTEIN NEGATIVE (NEGATIVE); URINE UROBILINOGEN 0.2-1.0 mg/dL (0.2-1.0)
[2018-11-30 13:01] LABS: ALB/GLOB RATIO 1.4 (1.0-2.1); ALBUMIN 4.4 g/dL (3.5-5.0); ALT/SGPT 30 U/L (9-52); AST/SGOT 25 U/L (14-36); BLOOD UREA NITROGEN 12 mg/dl (7-17); CALCIUM 9.2 mg/dL (8.4-10.2); GFR NON-AFRICAN AMERICAN > 60
[2018-11-30 14:19] VITALS: PULSE 60
--- NOTE | 2018-11-30 14:31 | US ---
Date of service: 11/30/2018 HISTORY: vaginal bleeding; last menstrual period is not stated. Prior left ectopic gestation some 5 weeks previously. COMPARISON: None available. TECHNIQUE: Transvaginal pelvic ultrasonography was performed utilizing sagittal and transverse projections as well as color Doppler technique. FINDINGS: UTERUS: Measures 5.5 x 3.6 x 4.8 cm cm. Normal in size and appearance, retroverted. No fibroid or other mass lesion seen. ENDOMETRIUM: Measures 10.0 mm in diameter. Mildly inhomogeneous but nonfocal. No gestational sac is identified within the endometrial cavity. CERVIX: No cervical abnormality identified, measuring 3.7 cm length. RIGHT OVARY: Measures 2.9 x 3.3 x 2.2 cm. No solid mass. Normal flow. Cystic structure with mildly thickened peripheral soft tissue rim measures 2.4 x 2.4 x 2.2 cm suggestive of potential corpus luteum cyst. LEFT OVARY: Measures 2.5 x 1.5 x 2.1 cm. No solid mass. Normal flow. A tiny simple cyst suggestive of a few small follicles identified measure 1.1 cm. FREE FLUID: No significant free fluid noted. OTHER FINDINGS: None. IMPRESSION: No gestational sac is identified within the endometrial cavity. No overt sonographic pattern of ectopic gestation. A presumed corpus luteum cyst is suggested at the right ovary however. Differential diagnosis consists of viable nonvisualized intrauterine gestation, demise or possible ectopic gestation. Serial beta HCG analysis is advised as well as one-week follow-up ultrasound by transvaginal technique.
[2018-12-02 13:08] LABS: PROGESTERONE 6.83 ng/mL
== END 2018-11-30 14:19 | disposition home or self-care (01) ==
LOC: H.ER 11:25
DX: O20.9 Hemorrhage in early pregnancy, unspecified (principal); Z3A.01 Less than 8 weeks gestation of pregnancy; Z88.0 Allergy status to penicillin